=== PATIENT | male | born 1995 | race Caucasian/White ===

== ENCOUNTER 2019-09-30 21:56 | Emergency (ER) | payer SELFPAY ==
[2019-09-30 21:57] VITALS: BP 140/87; PULSE 78; RESP 15; TEMP 36.5; O2SAT 96; BMI 31.2
--- NOTE | 2019-09-30 22:05 | ED.VIS.GEN ---
History of Present Illness Chief Complaint: Dental Informant: Patient Narrative: Presents with dental pain which he has had for a year and a half. He says is intermittently inflamed. He has not seen a dentist yet. He made an appointment for next Tuesday. He has not been on antibiotics. He said is starting to hurt like when it is infected. No facial swelling. No difficulty swallowing. No tongue swelling. No fevers. Past Medical History - Allergies and Home Meds Allergies/Adverse Reactions: Allergies No Known Allergies Allergy (Verified 09/30/19 21:59) Past Medical History: None Lives: With Family Alcohol: None Drugs: None Review of Systems General: Denies: Chills, Fever, Sweats ENT: Reports: - - dental pain Respiratory: Denies: Dyspnea, Cough, Dyspnea on exertion Gastrointestinal: Denies: Abdominal pain Musculoskeletal: Denies: Myalgias Skin: Denies: Rash, Wounds Neurological: Reports: Headache Psych: Denies: Depression, Anxiety Physical Exam Vital Signs/Narrative: Vital Signs Temp Pulse Resp BP Pulse Ox 09/30/19 21:57 97.7 F L 78 15 140/87 H 96 General: Well nourished, Well developed, No Acute Distress Head: Normocephalic, Atraumatic Eyes: Perrl, EOMI ENT: - - Right mandibular teeth have dental caries and there is percussion tenderness to these teeth. There is no abscess. The bucca mucosa is normal. Cardiovascular: Regular rate, Regular rhythm Abdomen: Soft, Nontender Back: Nontender Extremities: Nontender Neurological: Alert, Oriented x3 Psychological: Normal affect Diagnostic/Tx/Re-eval - Medical Decision Making She presents with dental pain and dental caries which is pretty severe on the right mandibular teeth. This is a chronic issue. Has a dental appointment on Tuesday to have these removed. I will put him on penicillin VK and Naprosyn until then. He is given return precautions. ED Disposition - Plan for ED Patient: Disposition: Home or Assisted Living Instructions: Dental Abscess, ED CAVITY Dental Prescriptions: Naproxen [Naprosyn] 500 mg PO BID PRN #30 tab Prescription Printed Penicillin V Potassium 500 mg PO 4X/DAY #40 tab Prescription Printed
[2019-09-30] MEDS: Penicillin Vk 250 MG Tablet 500 MG PO (22:14)
[2019-09-30] MEDS: Naproxen 500 MG Tablet PO (22:14)
== END 2019-09-30 22:24 | disposition home or self-care (01) ==
LOC: ED 22:22
PROVIDERS: Emergency Provider Student in an Organized Health Care Education/Training Program
DX: K04.7 Periapical abscess without sinus (principal); K02.9 Dental caries, unspecified
CPT/HCPCS: 99281

== ENCOUNTER 2019-11-26 14:38 | Emergency (ER) | payer SELFPAY ==
[2019-11-26 14:40] VITALS: BP 143/80; PULSE 82; RESP 16; TEMP 36.6; O2SAT 100; BMI 32.8
--- NOTE | 2019-11-26 15:09 | RAD_ITS ---
STUDY: X-RAY - LUMBAR SPINE REASON FOR EXAM: Male, 24 years old. PT FELT A POP AND NOW HAD PAIN FOLLOWING MOWING HIS YARD TECHNIQUE: 3 view(s) of the lumbar spine were obtained. COMPARISON: None FINDINGS: Normal lumbar lordosis. There is no substantial scoliosis. There is a normal alignment of the vertebrae. Slight anterior wedging L1 and L2. Normal vertebral bodies and endplates. Normal disc space heights. The soft tissue structures are unremarkable. RAD/Lumbar Spine 2 or 3 Views IMPRESSION: Mild compression fractures, age-indeterminate, or anatomic variant L1-L2. Electronically Signed: Olvin Gonzalez MD at 16:48 EDT , Service support ,
--- NOTE | 2019-11-26 15:09 | ED.VIS.BACK ---
History of Present Illness Chief Complaint: Back Informant: Patient Onset: Hours - several Context: Sudden Onset - pushing fusing machine tender up a hill Timing: Continuous Quality: Aching Location: Lumbar, Left Leg Current Severity: Moderate Maximum Severity: Severe Worsened by: improves with: Ambulation - and weight-bearing LLE Relieved by: Remaining Still - resting Associated Symptoms: Radiation to Left Leg - Without numbness, weakness, abdominal pain, urinary or bowel incontinence/retention. Narrative: Patient was pushing his lawnmower up the hill and was doing so expeditiously trying to beat a rainstorm when he felt a sudden pop in his low back more to the left, with pain, and radiation down his left lower extremity feeling some discomfort in his foot and toes as well. No history of back problems. Prior similar symptoms: No Past Medical History - Allergies and Home Meds Allergies/Adverse Reactions: Allergies No Known Allergies Allergy (Verified 09/30/19 21:59) Primary Care Physician: Marilu Love DO [NON-STAFF] - 1-2 Weeks (if not improving) Smoking Status: Current every day smoker Review of Systems General: Denies: Chills, Fever, Sweats Eyes: Denies: Visual changes - bilaterally, Diplopia ENT: Denies: Rhinorrhea, Sore throat Cardiovascular: Denies: Chest pain, Palpitations Respiratory: Denies: Dyspnea, Cough, Dyspnea on exertion Gastrointestinal: Denies: Abdominal pain, Nausea, Vomiting, Diarrhea, Melena, Hematochezia Genitourinary: Denies: Dysuria, Hematuria, Frequency Musculoskeletal: Reports: Back pain, Extremity Pain Skin: Denies: Rash, Wounds Neurological: Denies: Headache, Weakness, Numbness Physical Exam Vital Signs/Narrative: Vital Signs Temp Pulse Resp BP Pulse Ox 11/26/19 14:40 97.8 F 82 16 143/80 H 100 Inital Vital Signs reviewed: Yes General: Well nourished, Well developed, - - Well-appearing, no distress Head: Normocephalic, Atraumatic Back: Normal Inspection, Paraspinal Tenderness - Just left of midline, mid lumbar spine, Negative SLR - Right, Positive SLR - Left. Negative for: Spinal tenderness, CVA tenderness Extremeties: Nontender, No edema Skin: Normal color, No rash, No Trauma Neuro: Alert, Oriented, Normal Strength, Normal Sensation, Normal DTR - With downgoing toes bilaterally and no clonus, Normal Gait Psychological: Normal affect, Normal Mood Diagnostic/Tx/Re-eval X-Ray: LS SPine - 3 views, Read by ED Physician, Normal, No Fracture, Normal Bony Alignment - Medical Decision Making X-ray showed no bony involvement or obvious disc height loss. No indication for emergent MRI. Patient was treated with Toradol and since we did not have any Norflex in stock, oral Flexeril. 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 He is also given a PCP since he does not have 1, not to follow-up with. Differential includes muscular strain, ligament sprain, ruptured disc with nerve impingement/sciatica. ED Disposition - Plan for ED Patient: Disposition: Home or Assisted Living Diagnosis: Acute low back pain with left-sided sciatica Instructions: ED Back Pain Acute or Chronic, ED LUMBAR RADICULOPATHY Prescriptions: Naproxen [Naprosyn] 500 mg PO BID PRN #20 tab Prescription Printed traMADol [Ultram] 50 mg PO Q4H PRN PRN 3 Days #12 tab PRN Reason: Pain Prescription Printed Referrals: Ivan,Marilu, DO [NON-STAFF] - 1-2 Weeks (if not improving)
[2019-11-26] MEDS: Ketorolac 60 MG/2 ML Vial IM (15:20)
[2019-11-26] MEDS: cycloBENZAPRine HCl 10 MG Tablet PO (15:20)
== END 2019-11-26 15:40 | disposition home or self-care (01) ==
PROVIDERS: Emergency Provider Emergency Medicine
DX: M54.42 Lumbago with sciatica, left side (principal); F17.200 Nicotine dependence, unspecified, uncomplicated
CPT/HCPCS: 72100; 99283

== ENCOUNTER 2020-01-05 19:21 | Emergency (ER) | payer SELFPAY ==
[2020-01-05 19:24] VITALS: BP 152/88; PULSE 85; PULSE 88; RESP 17; TEMP 36.3; O2SAT 98; O2SAT 99; BMI 31.6
--- NOTE | 2020-01-05 19:42 | ED.VISSUMM ---
- ER Visit Summary Date of Service: 01/05/20 Chief Complaint: [Fever and request for COVID-19 test] History of Present Illness: The patient is a 24 M [presents to the emergency department stating that work advised him to come in and get tested for COVID-19. Patient states that he had a fever 2 days ago but also has a dental condition/infection. Patient states that his dentist called him in amoxicillin and his fever has since resolved. He denies cough. He denies sore throat or body aches. He has had a mild headache. He has not had any exposures to anybody with COVID-19.] Physical Examination: [HEENT-PERRLA, EOMI. Cranial nerves II through XII grossly intact. TMs clear. Mucous membranes moist. No adenopathy. Right lower molar slightly tender to palpation and appears broken and carried. Patient does have a small gingival abscess measuring approximately 5 mm in diameter. Cardiovascular-regular rate and rhythm without murmur or ectopy Lungs-clear to auscultation, chest wall stable without crepitus or subcu emphysema Abdomen-normoactive bowel sounds, soft, nontender, no rebound or rigidity, no peritoneal signs. Extremities-intact ?4, normal range of motion, normal pulses, atraumatic] Test Results: [COVID-19 test ordered and pending] Emergency Department Course and Treatment: [] Treatment Plan: [Patient advised to self quarantine until test results returns.] Disposition: [Discharged home in stable condition] Impression: [Fever Dental abscess] This note was generated with imbookin (P[employer]by) dictation software. It may contain incorrect words, spelling, and punctuation that were not noted in review of the chart prior to signing ED Disposition - Plan for ED Patient: Referrals: Care Physician,No Primary [Primary Care Provider] -
--- NOTE | 2020-01-05 19:44 | ED.DEP ---
ED Disposition - Plan for ED Patient: Instructions: ED ABSCESS DENTAL Referrals: Care Physician,No Primary [Primary Care Provider] - Additional Instructions: see a dentist
[2020-01-05 20:01] VITALS: RESP 16
== END 2020-01-05 20:03 | disposition home or self-care (01) ==
LOC: ED 19:50
PROVIDERS: Emergency Provider Emergency Medicine
DX: R50.9 Fever, unspecified (principal); K04.7 Periapical abscess without sinus; F17.200 Nicotine dependence, unspecified, uncomplicated
CPT/HCPCS: 87635; 99281; 99283; U0003

== ENCOUNTER 2021-09-20 21:34 | Emergency (ER) | payer SELFPAY ==
[2021-09-20 21:35] VITALS: BP 133/84; PULSE 80; RESP 15; TEMP 36.6; O2SAT 100; BMI 27.8
--- NOTE | 2021-09-20 23:12 | ED.VIS.DENTA ---
HPI History of Present Illness Chief Complaint: Dental Informant: patient Narrative Narrative: Patient states he has had problems with his teeth for about 4 years. However in the last few weeks he has gotten more soreness in the left upper wisdom tooth and premolar area. No fevers chills. No trouble swallowing. He states he just cannot afford to go see a dentist. He has gotten penicillin before which is calm but down for a while. No other complaints. PFSH PFS Medical History Calcium deficiency Medical History no medical history Home Medications gabapentin 09/20/21 [History Last Taken Unknown] ibuprofen 800 mg PO/SL DAILY 09/20/21 [History Last Taken Unknown] naproxen 1,000 mg PO/SL DAILY 09/20/21 [History Last Taken Unknown] naproxen 500 mg tablet 500 mg PO BID #20 tabs 09/20/21 [Rx Last Taken Unknown] penicillin V potassium 500 mg tablet 500 mg PO 4X/DAY #40 tabs 09/20/21 [Rx Last Taken Unknown] Allergy/AdvReac Type Severity Reaction Status Date / Time No Known Allergies Allergy Verified 01/05/20 19:22 Surgical History no surgical history Social History Smoking Status: Current every day smoker tobacco type: cigarettes ROS ROS ED Constitutional Constitutional ED: Denies chills, fever(s) or subjective ENT ENT ED: Reports other Details: Dental pain as in history of present illness ; Denies rhinorrhea Cardiovascular Cardiovascular: Denies chest pain or palpitations Gastrointestinal Gastrointestinal: Denies nausea or vomiting Musculoskeletal Musculoskeletal: Denies neck pain Integumentary Denies Abrasions or rash Neurologic Neurologic: Denies headache(s) Hematologic/Lymphatic Hematologic/Lymphatic: Denies lymphadenopathy EXAM Physical Exam Const Vital Signs: 09/20/21 21:35 09/20/21 23:19 Temperature 97.9 F Temperature Source Temporal Pulse Rate 80 Respiratory Rate 15 16 Blood Pressure 133/84 H Blood Pressure Mean 100 Pulse Ox 100 Oxygen Delivery Method Room Air Positive well nourished Constitutional Narrative: Patient sitting on the bed with his significant other looking through things on the phone when I walked in the room. He looks comfortable. He carries on a normal conversation. General Appearance ED: NAD HEENT HEENT Narrative: No sternal swelling. He has multiple teeth with obvious erosions and dental caries. There is some erythema at the base mostly in the left upper molar and premolar area. But there is no drainable abscess. Voice is normal. No Ben's angina. Negative for trauma Eyes EOMs intact bilaterally Neck no lymphadenopathy Neck Narrative: No swelling lymphadenopathy or stridor. Chest Wall inspection of chest normal Resp normal respiratory effort and clear to auscultation bilaterally Cardio regular rate and regular rhythm Neuro Sensorium / Orientation: alert Skin no rashes or lesions noted MDM MDM MDM Narrative Medical decision making narrative: Patient be treated with penicillin nonsteroidals. Follow-up with dentist. Dental resource sheet available. Discharge Plan Triage Chief Complaint: Dental ED Provider: Cody Luque Dx/Rx/DC Orders Clinical Impression: Dental caries Instructions: ED Dental Pain Prescriptions: New penicillin V potassium 500 mg tablet 500 mg PO 4X/DAY Qty: 40 0RF naproxen 500 mg tablet 500 mg PO BID Qty: 20 0RF No Action gabapentin ibuprofen 800 mg PO/SL DAILY naproxen 1,000 mg PO/SL DAILY Primary Care Provider: Care Physician,No Primary Referrals: Care Physician,No Primary [Primary Care Provider] - Disposition Disposition: Home, Self Care Discharge Date/Time: 09/20/21 23:21
[2021-09-20 23:19] VITALS: RESP 16
[2021-09-20] MEDS: Penicillin Vk 250 MG Tablet 500 MG PO (23:20)
[2021-09-20] MEDS: Naproxen 500 MG Tablet PO (23:20)
== END 2021-09-20 23:21 | disposition home or self-care (01) ==
PROVIDERS: Emergency Provider Emergency Medicine; Visit Provider Emergency Medicine
DX: K02.9 Dental caries, unspecified (principal); F17.210 Nicotine dependence, cigarettes, uncomplicated
CPT/HCPCS: 99283

== ENCOUNTER 2021-11-17 09:25 | Emergency (ER) | payer SELFPAY ==
[2021-11-17 09:26] VITALS: BP 149/82; PULSE 105; RESP 20; TEMP 36.7; O2SAT 98; BMI 24.7
--- NOTE | 2021-11-17 10:40 | ED.VIS.DENTA ---
HPI History of Present Illness Chief Complaint: Dental Informant: patient Onset/Context/Timing Onset: Month(s) (4) Context: Gradual Onset Timing: Continuous Quality: Pressure Location: Right upper molars and premolars Worsened by: Everything Relieved by: - (Nothing) Associated Symptoms Assocated Symptom - Dental: jaw swelling, face swelling, cold sensitivity and hot sensitivity; Negative for fever Narrative Narrative: Patient presents with dental abscess that became worse today. Patient states he has been having problems with his teeth for the past 4 months. Patient states he has pressure over the right upper premolar and molar areas. Patient states everything makes it worse. Patient states nothing makes it better. Patient admits to some swelling of his jaw and face. Patient also admits to hot and cold sensitivity. Patient denies any fevers or chills. Patient states he is unable to see a dentist for this. [facility] Medical History Calcium deficiency Home Medications gabapentin 09/20/21 [History Last Taken Unknown] ibuprofen 800 mg PO/SL DAILY 09/20/21 [History Last Taken Unknown] naproxen 1,000 mg PO/SL DAILY 09/20/21 [History Last Taken Unknown] naproxen 500 mg tablet 500 mg PO BID #20 tabs 09/20/21 [Rx Last Taken Unknown] penicillin V potassium 500 mg tablet 500 mg PO 4X/DAY #40 tabs 11/17/21 [Rx Last Taken Unknown] Allergy/AdvReac Type Severity Reaction Status Date / Time No Known Allergies Allergy Verified 11/17/21 09:26 Surgical History no surgical history no surgical history Social History Smoking Status: Current every day smoker tobacco type: cigarettes ROS ROS ED Constitutional Constitutional ED: Denies chills or fever(s) Eyes Eyes: Denies blurry vision or change in vision ENT ENT ED: Denies rhinorrhea or sore throat Cardiovascular Cardiovascular: Denies chest pain or palpitations Respiratory/Chest Respiratory/Chest: Denies cough or dyspnea Gastrointestinal Gastrointestinal: Denies nausea or vomiting Genitourinary Genitourinary ED: Denies dysuria or hematuria Musculoskeletal Musculoskeletal: Reports back pain; Denies neck pain Integumentary Denies abscess or rash Neurologic Neurologic: Reports headache(s); Denies weakness Allergic/Immunologic Allergic/Immunologic ED: Denies mouth swelling or urticaria EXAM Physical Exam Const Vital Signs: 11/17/21 09:26 Temperature 98.0 F Temperature Source Temporal Pulse Rate 105 H Respiratory Rate 20 H Blood Pressure 149/82 H Blood Pressure Mean 104 Pulse Ox 98 Oxygen Delivery Method Room Air Positive well nourished and well developed General Appearance ED: well developed and NAD HEENT HEENT Narrative: Oral mucosa is pink and moist. There are multiple dental caries. There is some mild edema over the gingiva of the right upper premolars. There is no fluctuance. There is no active discharge or drainage. Oropharynx is clear. Airway is patent. Neck is supple. Trachea is midline. There is no JVD or lymphadenopathy. There is no sublingual edema or erythema. Mouth ED: Yes oral and palatal mucosa normal and Yes tongue normal Mouth: oral and palatal mucosa normal and tongue normal Teeth and Gingiva: caries and gingiva abnormal Positive for gingival edema Eyes PERRL and EOMs intact bilaterally Neck no lymphadenopathy, supple and no JVD General: Negative for anterior neck swelling or submandibular swelling Neuro oriented x3, CN's II-XII intact bilaterally, moves all extremities, no focal motor deficits and no sensory deficits noted Sensorium / Orientation: alert Motor Exam: strength 5/5 throughout Psych mental status grossly normal Skin no rashes or lesions noted MDM MDM MDM Narrative Medical decision making narrative: Patient was given a dose of Pen-Vee K here. Patient was given a prescription for Pen-Vee K. Patient was instructed to take ibuprofen or Tylenol as needed for pain. Patient was given dental referral sheet. Patient was instructed to follow-up in 7 to 10 days for further evaluation. Patient understood and was agreeable with the plan. All questions were answered. Discharge Plan Triage Chief Complaint: Dental ED Provider: Sae Erickson Dx/Rx/DC Orders Clinical Impression: Infected dental caries Instructions: ED Dental Abscess Prescriptions: Continued penicillin V potassium 500 mg tablet 500 mg PO 4X/DAY Qty: 40 0RF No Action gabapentin ibuprofen 800 mg PO/SL DAILY naproxen 1,000 mg PO/SL DAILY naproxen 500 mg tablet 500 mg PO BID Qty: 20 0RF Primary Care Provider: Care Physician,No Primary Referrals: Care Physician,No Primary [Primary Care Provider] - Dentist,Your [STAFF PHYSICIAN] - 5-7 Days Disposition Disposition: Home, Self Care
[2021-11-17] MEDS: Penicillin Vk 250 MG Tablet 500 MG PO (10:58)
[2021-11-17] MEDS: Ibuprofen 400 MG Tablet 800 MG PO (10:58)
== END 2021-11-17 11:00 | disposition home or self-care (01) ==
PROVIDERS: Emergency Provider Emergency Medicine; Visit Provider Emergency Medicine
DX: K02.9 Dental caries, unspecified (principal); F17.210 Nicotine dependence, cigarettes, uncomplicated
CPT/HCPCS: 99283

== ENCOUNTER 2022-05-29 04:23 | Emergency (ER) | payer SELFPAY ==
[2022-05-29 04:24] VITALS: BP 129/75; PULSE 70; RESP 18; TEMP 36.1; O2SAT 100; BMI 24.7
--- NOTE | 2022-05-29 04:46 | EDS_ITS ---
HPI History of Present Illness Chief Complaint: Dental Informant: patient Narrative Narrative: Patient presents with diffuse dental pain that has been going on for months, and fevers for the last several days, he states when he has a fever he feels like he is hallucinating and having trouble talking and thinking straight. He presents around 4:30 AM, he does not currently have a fever, verified by our vital signs. He states as result of all of this, he was advised to come here to make sure that he is not septic. On his own, he took someone else's doses of Augmentin, once yesterday and once this morning as a result of this. He denies symptoms elsewhere right now that he does not have a fever, saying it really is just his teeth that are bothersome but he is not in extreme pain. The last time he was on antibiotics prior to the ones he took yesterday and today was about 3 months ago for the same thing. He has yet to schedule an appointment with a dentist but plans to. He also has had a pruritic rash on his left arm for several days. Lives with his mom who has had the rash at times as well. Denies any painful lesions or rashes. [facility] Medical History Calcium deficiency Home Medications gabapentin 09/20/21 [History Last Taken Unknown] ibuprofen 800 mg PO/SL DAILY 09/20/21 [History Last Taken Unknown] naproxen 1,000 mg PO/SL DAILY 09/20/21 [History Last Taken Unknown] naproxen 500 mg tablet 500 mg PO BID #20 tabs 09/20/21 [Rx Last Taken Unknown] penicillin V potassium 500 mg tablet 500 mg PO 4X/DAY #40 tabs 11/17/21 [Rx Last Taken Unknown] amoxicillin 875 mg-potassium clavulanate 125 mg tablet 875 mg PO Q12H #20 TABLETS 05/29/22 [Rx Last Taken Unknown] permethrin 5 % topical cream (Elimite) 1 applic topical Q14D 2 doses #60 grams 05/29/22 [Rx Last Taken Unknown] Allergy/AdvReac Type Severity Reaction Status Date / Time No Known Allergies Allergy Verified 05/29/22 04:35 Social History Smoking Status: Current every day smoker tobacco type: cigarettes ROS ROS ED Constitutional Constitutional ED: Reports fever(s); Denies chills Eyes Eyes: Denies change in vision or double vision ENT ENT ED: Reports dental pain and ear pain left (at times, and it sometimes pops; not now); Denies sinus pain, sore throat or throat swelling Cardiovascular Cardiovascular: Denies chest pain or palpitations Respiratory/Chest Respiratory/Chest: Denies cough or dyspnea Integumentary Reports rash; Denies abscess Neurologic Neurologic: Denies headache(s), paresthesias or weakness Psychiatric Psychiatric: Reports as per HPI and hallucinations EXAM Physical Exam Const Vital Signs: 05/29/22 04:24 Temperature 96.9 F L Temperature Source Temporal Pulse Rate 70 Respiratory Rate 18 Blood Pressure 129/75 H Blood Pressure Mean 93 Pulse Ox 100 Oxygen Delivery Method Room Air Positive well nourished and well developed General Appearance ED: well developed and NAD HEENT HEENT Narrative: TMs and EACs normal bilaterally. No mastoid tenderness, swelling, erythema. No facial swelling. No trismus. Extremely poor dentition with multifocal decay but no evidence of gingivitis or bleeding/swelling, gingival abscess, or discharge of any type. Normal tongue no elevation. Normal voice. Normal throat. No nasal turbinate edema or purulent nasal discharge. Face and Sinus: sinuses nontender Throat: posterior oropharynx normal Eyes PERRL and EOMs intact bilaterally Eyes Narrative: no conjunctival petechiae Neck no lymphadenopathy and supple Resp normal respiratory effort Cardio regular rate, regular rhythm and no murmurs Rate: Negative for tachycardic Extremity normal to inspection and no joint enlargement Extremity Narrative: No Osler's nodes, Janeway lesions, or splinter hemorrhages Neuro oriented x3 and CN's II-XII intact bilaterally Sensorium / Orientation: alert Gait (Neuro): normal gait Psych mental status grossly normal and thought process normal Skin no wounds Skin Narrative: Maculopapular nontender lesions left upper arm, forearm, some on the thumb but not the thenar eminence or the hypothenar eminence, more on the dorsum of the thumb in the form of a nontender superficial scab. Many of them are scabbed. Some are excoriated. None have any abscess, none are tender, no lymphangitis. MDM MDM MDM Narrative Medical decision making narrative: I do not see any obvious mites but this rash is more consistent with scabies than any type of bacterial infection. It does not appear to be folliculitis. There are no discharge. He does not have any stigmata of endocarditis or bacteremia, and I reassured him that based on his exam and vital signs he is not septic. He does not have an objective infection of his dentition. However given the pain that he is having and fevers that he reports, as well as the quite terrible decay he has multifocally throughout his dentition, I do think treating him with antibiotics for that reason would be warranted. I discussed reasons to return he is comfortable with that plan, and following up with a dentist, and using permethrin cream for the rash in addition hydrocortisone as needed topically, I gave him a dental referral list. Discharge Plan Triage Chief Complaint: Dental ED Provider: Gurpreet Lehman Dx/Rx/DC Orders Clinical Impression: Infected dental caries, Dermatitis Instructions: Understanding Tooth Decay, ED Scabies Prescriptions: New amoxicillin-pot clavulanate [amoxicillin-pot clavulanate] 875-125 mg tablet 875 mg PO Q12H Qty: 20 0RF permethrin [Elimite] 5 % cream 1 applic topical Q14D Qty: 60 0RF Rx Instructions: apply to entire body at night, shower off in AM; apply second treatment 14 days after first treatment if live lice remain No Action gabapentin ibuprofen 800 mg PO/SL DAILY naproxen 1,000 mg PO/SL DAILY naproxen 500 mg tablet 500 mg PO BID Qty: 20 0RF penicillin V potassium 500 mg tablet 500 mg PO 4X/DAY Qty: 40 0RF Primary Care Provider: Care Physician,No Primary Referrals: Care Physician,No Primary [Primary Care Provider] - Dentist,Your [STAFF PHYSICIAN] - As soon as possible (See attached resource list if you needed for an available regional dentists) Disposition Disposition: Home, Self Care
== END 2022-05-29 04:59 | disposition home or self-care (01) ==
LOC: ED 04:47
PROVIDERS: Emergency Provider Emergency Medicine; Visit Provider Emergency Medicine
DX: K02.9 Dental caries, unspecified (principal); L30.9 Dermatitis, unspecified; F17.210 Nicotine dependence, cigarettes, uncomplicated
CPT/HCPCS: 99282

== ENCOUNTER 2023-07-15 12:26 | Emergency (ER) | payer MEDICAID, SELFPAY ==
[2023-07-15 12:27] VITALS: BP 137/83; PULSE 85; RESP 14; TEMP 36.2; O2SAT 97; BMI 29.2
--- NOTE | 2023-07-15 12:56 | EX.ED.DYSGE1 ---
HPI <GILBERT Palencia - Last Filed: 07/15/23 13:18> History of Present Illness Chief Complaint: Laceration Narrative Narrative: Patient is a 28-year-old male with no significant medical history presents to the emergency department with right index finger injury. Patient states 6 days ago, the patient got upset, punched a telephone pole in the telephone pole had a nail. He did sustain a laceration to the dorsal aspect of the right index finger. Patient did not seek medical care. The area is now red and inflamed, and he is concerned. Patient is full range of motion of right hand. PFSH <GILBERT Palencia - Last Filed: 07/15/23 13:18> [facility] Medical History Calcium deficiency Home Medications gabapentin 09/20/21 [History Last Taken Unknown] ibuprofen 800 mg PO/SL DAILY 09/20/21 [History Last Taken Unknown] naproxen 1,000 mg PO/SL DAILY 09/20/21 [History Last Taken Unknown] naproxen 500 mg tablet 500 mg PO BID #20 tabs 09/20/21 [Rx Last Taken Unknown] penicillin V potassium 500 mg tablet 500 mg PO 4X/DAY #40 tabs 11/17/21 [Rx Last Taken Unknown] amoxicillin 875 mg-potassium clavulanate 125 mg tablet 875 mg (0.875 x 875-125 mg) PO Q12H #20 TABLETS 05/29/22 [Rx Last Taken Unknown] permethrin 5 % topical cream (Elimite) 1 applic topical Q14D 2 doses #60 grams 05/29/22 [Rx Last Taken Unknown] clindamycin HCl 300 mg capsule 300 mg PO Q8H 7 days #21 caps 07/15/23 [Rx Last Taken Unknown] Allergy/AdvReac Type Severity Reaction Status Date / Time No Known Allergies Allergy Verified 07/15/23 12:30 Social History Smoking Status: Current every day smoker tobacco type: cigarettes ROS <GILBERT Palencia - Last Filed: 07/15/23 13:18> ROS ED ROS Narrative Constitutional: Negative for fever, chills, weight loss, weakness Eyes: Negative for vision loss, vision change, double vision ENT: Negative for any sore throat, ear pain, congestion Cardiovascular: Negative for any chest pain, tightness, palpitations Respiratory: Negative for any cough, sputum production, hemoptysis, dyspnea, dyspnea on exertion, orthopnea Gastrointestinal: Negative for any abdominal pain, nausea, vomiting, diarrhea, constipation, blood in stool, blood in vomit : Negative for any urinary frequency, dysuria, retention, blood in urine Muscle skeletal: Negative for any neck pain, back pain Neurological: Negative for any headache, syncope, dizziness Skin: Negative for any rashes, itching, abrasions. Positive for a flap-like laceration to the dorsal aspect of the right index finger Psychiatric: Negative for any depression, anxiety, stress, suicidal ideation, homicidal ideation Hematologic: Negative for any excessive bruising, easy bleeding EXAM <GILBERT Palencia - Last Filed: 07/15/23 13:18> Physical Exam Narrative Exam Narrative: Vital signs reviewed. HEET: Head normocephalic atraumatic, TMs clear bilaterally. Posterior pharynx is clear, moist mucous membranes. Nares clear bilaterally. Neck: Supple with no lymphadenopathy or tenderness. No signs of meningismus. Cardiac: Regular rate and rhythm no murmurs gallops or rubs, equal peripheral pulses bilaterally. Respiratory: Lungs clear to auscultation bilaterally. No chest tenderness. Abdomen: Soft, nontender, nondistended. No abdominal bruit or pulsatile masses. No hepatosplenomegaly Extremities: Patient does have signs of trauma to the dorsal aspect of the right index finger. Patient is able to flex extend against resistance. This wound does appear old appearing, there is some erythema around the area concerning for cellulitis. There is no evidence of foreign body. Neuro: Cranial nerves II through XII intact, no focal neurological deficits. Skin: Clean dry and intact with no rash, purpura, petechiae, vesicles or pustules. Backs/flank: No CVA tenderness, no midline spinal tenderness, no deformity. Psych: Normal mood and affect. No SI, HI or acute psychosis. Const Vital Signs: 07/15/23 12:27 Temperature 97.1 F L Temperature Source Temporal Pulse Rate 85 Respiratory Rate 14 Blood Pressure 137/83 H Blood Pressure Mean 101 Pulse Ox 97 Oxygen Delivery Method Room Air <Dr. Gurpreet Lehman MD - Last Filed: 07/15/23 13:17> Physical Exam Const Vital Signs: 07/15/23 12:27 Temperature 97.1 F L Temperature Source Temporal Pulse Rate 85 Respiratory Rate 14 Blood Pressure 137/83 H Blood Pressure Mean 101 Pulse Ox 97 Oxygen Delivery Method Room Air [facility] <Aniceto JoaoGILBERT haider - Last Filed: 07/15/23 13:18> [facility] Treatment and Re-Evaluation :: Differential diagnosis includes however is not limited to: Hand fracture, finger fracture, cellulitis, foreign body Patient appears to be in no obvious respiratory distress, patient's vital signs are stable. Patient presents to the emergency department with complaints of right index finger pain secondary to punching a telephone pole that had a nail in it. X-rays will be obtained. This is concerning for any foreign body. Patient will be updated on his tetanus vaccination today. Patient placed on 1 week of clindamycin 300 mg 3 times a day. X-ray 3 views of the right hand showed no acute foreign body, no osseous abnormality. At this time, patient is stable for discharge. He was updated with his tetanus vaccination today, he will take the antibiotics until finished. All questions answered, given return precautions. <Dr. Gurpreet Lehman MD - Last Filed: 07/15/23 13:17> [facility] Narrative Medical decision making narrative: I have personally performed a face to face assessment of the patient and have reviewed the JACQUE Note. I performed a substantive portion of the visit including all aspects of the following. My ch findings include: History is laceration to his right index finger 5 days ago. Concerned because it is sore and there is a scant amount of drainage on the dressing. This is the first visit to healthcare provider for this. Exam is flap-shaped laceration dorsum of the right index finger proximal phalanx. There is no bone or tendon exposed. He has full range of motion of the MCPJ, PIPJ,, FDP, FDS, extensor all intact. There are some slight erythema around the perimeter of the wound but no gross cellulitis. The scant amount of discharge on the gauze is serosanguineous. There is no pus expressible from the wound. Medical Decison Making three-view x-ray series of the right hand on my interpretation shows no evidence of foreign body or bony involvement. Patient is reassured. My suspicion is that the erythema around this is simply inflammation due to healing, but given that it is on his finger and it was a dirty wound we are prescribing him a short course of antibiotics, updating his tetanus, no wound repair is indicated given the significant delay and the fact that the bone and tendons are well covered. Other additions or changes: [None] Discharge Plan Triage Chief Complaint: Laceration ED Midlevel Provider: Aniceto Siegel ED Provider: Gurpreet Lehman Dx/Rx/DC Orders Clinical Impression: Cellulitis of finger, Finger laceration Prescriptions: New clindamycin HCl 300 mg capsule 300 mg PO Q8H 7 Days Qty: 21 0RF No Action gabapentin ibuprofen 800 mg PO/SL DAILY naproxen 1,000 mg PO/SL DAILY naproxen 500 mg tablet 500 mg PO BID Qty: 20 0RF penicillin V potassium 500 mg tablet 500 mg PO 4X/DAY Qty: 40 0RF amoxicillin-pot clavulanate [amoxicillin-pot clavulanate] 875-125 mg tablet 875 mg PO Q12H Qty: 20 0RF permethrin [Elimite] 5 % cream 1 applic topical Q14D Qty: 60 0RF Rx Instructions: apply to entire body at night, shower off in AM; apply second treatment 14 days after first treatment if live lice remain Stand Alone Forms: ED Work / School Excuse Primary Care Provider: Care Physician,No Primary Referrals: Marilu Love DO [Med Staff - [employer]] - Care Physician,No Primary [Primary Care Provider] - Activity Restrictions/Additional Instructions: Please follow-up. Ensure the area is clean and dry. Disposition Disposition: Home, Self Care
--- NOTE | 2023-07-15 13:10 | RAD_ITS ---
STUDY: X-RAY - RIGHT HAND REASON FOR EXAM: Male, 28 years old. Laceration of the second digit. TECHNIQUE: 3 view(s) of the hand. COMPARISON: None. FINDINGS: Normal radiocarpal articulation. Normal distal radioulnar joint. Normal visualized carpal bones. Normal carpal articulations Normal carpometacarpal articulation of the thumb. Normal second through fifth carpometacarpal joints. Normal metacarpi. Normal metacarpophalangeal joint of the thumb. Normal interphalangeal joint of the thumb. Normal proximal and distal phalanges of the thumb. Normal metacarpophalangeal joints of the second through fifth fingers. Normal proximal and distal interphalangeal joints of the second through fifth fingers. Normal phalanges of the second through fifth fingers. The soft tissue structures are unremarkable. RAD/Hand Min 3 Views IMPRESSION: Normal x-ray examination of the hand. Electronically Signed: Fernando Fajardo MD at 13:23 EDT ,
[2023-07-15] MEDS: Clindamycin HCl 150 MG Capsule 300 MG PO (13:15)
[2023-07-15] MEDS: Diphth,Pertuss(Acell),Tet Vac 0.5 ML Vial IM (13:15)
[2023-07-15 13:22] VITALS: BP 129/71; PULSE 68; RESP 15; TEMP 36.3; O2SAT 99
== END 2023-07-15 13:23 | disposition home or self-care (01) ==
PROVIDERS: Emergency Provider Emergency Medicine; Visit Provider Emergency Medicine
DX: L03.011 Cellulitis of right finger (principal); F17.210 Nicotine dependence, cigarettes, uncomplicated; W22.8XXA Striking against or struck by other objects, initial encounter; Z23 Encounter for immunization
CPT/HCPCS: 73130; 90471; 90715; 99282